=== PATIENT | female | born 1990 | race Caucasian/White ===

== ENCOUNTER 2016-03-08 18:21 | Inpatient (IN) | payer OTHER, MEDICAID ==
[~2016-03-08] VITALS: Ht 154.9 cm; Wt 57.6 kg
[2016-03-08] MEDS: LACTATED RINGER'S 1000 ML IV SCH ×2 (20:00→22:19)
[2016-03-08] MEDS ORDERED: MINERAL OIL 10 ML VIAL TOP PRN (21:00)
[2016-03-08] MEDS ORDERED: OXYTOCIN 30 UNITS 500ML PREMIX IV ONE (21:00)
[2016-03-08] MEDS ORDERED: LIDOCAINE HCL 1% 50 ML VIAL INFIL PRN (21:00)
[2016-03-08] MEDS ORDERED: PENICILLIN G POT 5,000,000 UNITS/NS 100 ML (Mini-Bag Plus) IV ONE ×2 (21:00)
[2016-03-08] MEDS ORDERED: LACTATED RINGER'S 1000 ML INJ 1,000 ML IV SCH (21:15)
[2016-03-08] MEDS ORDERED: LIDOCAINE HCL 1% 50 ML VIAL I-DERMAL PRN (21:15)
[2016-03-08] MEDS ORDERED: NS 1000 ML IV PRN (21:15)
[2016-03-08] MEDS ORDERED: CITRIC ACID-SODIUM CITRATE LIQ 30 ML UDC PO SCH (21:15)
[2016-03-08] MEDS ORDERED: NS 1000 ML XX PRN (21:15)
[2016-03-08] MEDS ORDERED: LACTATED RINGER'S 1000 ML BOLUS IV PRN (21:15)
[2016-03-08] MEDS ORDERED: NS 500 ML BOLUS IV PRN (21:15)
[2016-03-08] MEDS ORDERED: ONDANSETRON HCL 4 MG/2 ML VIAL IV PRN (21:15)
[2016-03-08 21:24] LABS: AUTOMATED NEUTROPHIL # 9.2 TH/MM3 (1.8-7.7); BASOPHIL # 0.1 TH/MM3 (0-0.2); BASOPHIL % 0.4 % (0.0-2.0); EOSINOPHIL # 0.1 TH/MM3 (0-0.4); EOSINOPHIL % 0.5 % (0.0-4.0); HEMATOCRIT 34.2 % (35.0-46.0); HEMO FLAGS DIFF FINAL; LYMPH % 26.6 % (9.0-44.0); LYMPHOCYTE # 3.7 TH/MM3 (1.0-4.8); MEAN CELL VOLUME 95.7 FL (80.0-100.0); MEAN CORPUSCULAR HEMOGLOBIN 32.9 PG (27.0-34.0); MEAN CORPUSCULAR HGB CONC 34.3 % (32.0-36.0); MONO % 6.4 % (0.0-8.0); NEUT % 66.1 % (16.0-70.0); PLATELET COUNT 299 TH/MM3 (150-450); RED BLOOD COUNT 3.57 MIL/MM3 (4.00-5.30); RED CELL DISTRIBUTION WIDTH 12.9 % (11.6-17.2); WHITE BLOOD COUNT 13.9 TH/MM3 (4.0-11.0)
--- NOTE | 2016-03-08 21:27 | HHI.HP ---
HPI Chief Complaint scheduled postdates labor induction Date Seen: Mar 08, 2016 Time Seen: 21:00 Travel History International Travel<30 Days: No Contact w/Intl Traveler<30Days: No Known Affected Area: No History of Present Illness HPI 25 yo with EDC 03/02/16 presents to L&D for scheduled postdates labor induction. has been complicated by history of opioid dependene, pt has been off subutex since 12/2015. Patient also presented late to PNC at 20 weeks. Has history of hepatitis C, s/p treatment, during has had non- detectable viral load. Was seeing Dr. Avilez for PNC. Today in office pt c/ o irregular contractions and pelvic pressure, mild /. No VB, LOF. Endorses good FM. FOB and mother are present at appointment and good support. Para: 0 : 3 Miscarriage: 0 : 2 (age 19 & 21) History Past Medical History Narrative Medical Hepatitis C, in remission history of IV drug abuse, h/o subutex; clean/off since 12/2015 LSIL Pap +HR HPV Obstetric History Obstetric History G1 & G2 = EAB age 19 &21 G3 = current Past Surgical History Narrative Surgical denies Family History Family History: Negative Social History Alcohol Use: No (history of, not currently) Tobacco Use: Yes Substance Abuse: No (not since 12/2015; was on subutex; history of heroin, street drugs since age 18) Review of Systems General / Constitutional: Weight Gain, No: Fever, Chills, Other Eyes: No: Diploplia, Blurred Vision, Visual changes, Pain, Photophobia HENT: No: Headaches, Vertigo, Lightheadedness Cardiovascular: No: Irregular Rhythm, Chest Pain or Discomfort, Palpitations, Tachycardia, Syncope, Varicosities, Edema, Cyanosis Respiratory: No: Cough, Short of Breath, Other Gastrointestinal: No: Nausea, Vomiting, Diarrhea Genitourinary: Pelvic Pain (pressure), No: Decreased Urinary Output, Oliguria Musculoskeletal: No: Limited ROM, Weakness, Cramping, Edema, Pain Skin: No Rash, No Itching, No Dryness, No Lumps, No Change in Pigmentation, No Change in Nails, No Alopecia, No Lesions Neurologic: No: Weakness, Dizziness, Syncope, Focal Abnormalities, Coordination Problem, Headache, Slurred Speech, Seizures Psychiatric: No: Depression, Suicidal Ideations, Homicidal Ideation Endocrine: No: Heat Intolerance, Cold Intolerance, Polydipsia, Polyuria, Other Physical Exam Narrative GENERAL: Well-nourished, well-developed patient. SKIN: Warm and dry. HEAD: Normocephalic and atraumatic. EYES: No scleral icterus. No injection or drainage. ENT: No nasal drainage noted. Mucous membranes pink. Airway patent. NECK: Supple, trachea midline. No JVD. CARDIOVASCULAR: Regular rate and rhythm without murmurs, gallops, or rubs. RESPIRATORY: Breath sounds equal bilaterally. No accessory muscle use. BREASTS: ABDOMEN/GI: Abdomen soft, non-tender, bowel sounds present, no rebound, no guarding Gravid to [41] weeks size Fundal Height: [41] GENITOURINARY: External Genitalia: intact and normal in appearance BUS glands: [wnl] Cervix: [posterior] Dilatation: [1 Effacement: [50] Station: [-3] Presentation: [vtx] Membranes: [intact] Uterine Contractions: [irregular] FHT's: +FHTs in office EXTREMITIES: No cyanosis or edema. BACK: Nontender without obvious deformity. No CVA tenderness. NEUROLOGICAL: Awake and alert. Motor and sensory grossly within normal limits. Five out of 5 muscle strength in all muscle groups. Normal speech. Data Data Vital Signs Reviewed: Yes Orders Code Status (03/08/16 21:04) Vital Signs (Adult) .Per protocol (03/08/16 21:04) Activity Oob Ad Madhavi (03/08/16 21:04) ^ Heart (03/08/16 21:04) ^ Amnioinfusion (03/08/16 21:04) Urinary Catheter Management .ONCE (03/08/16 21:04) Complete Blood Count With Diff (03/08/16 21:04) Hold Clot (03/08/16 21:04) Abo/Rh Blood Type (03/08/16 21:04) Urinalysis - C+S If Indicated (03/08/16 21:04) Resp Oxygen Non Rebreathe Mask (03/08/16 ) ^ Epidural / Intrathecal Infus (03/08/16 21:04) Diet Liquid (03/08/16 Dinner) Diet Npo (03/09/16 Breakfast) Activity Oob Ad Madhavi (03/08/16 21:04) ^ Labor Induction (03/08/16 21:04) ^ Vaginal Insert (03/08/16 21:04) ^ Vaginal Lavage (03/08/16 21:04) ^ Heart (03/08/16 21:04) Specimen To Be Collected PRN (03/08/16 21:04) Lactated Ringer's 1000 Ml Inj (Lr 1000 M (03/08/16 21:15) Lactated Ringer's 1000 Ml Inj (Lr 1000 M (03/08/16 21:15) Sodium Chlorid 0.9% 500 Ml Inj (Ns 500 M (03/08/16 21:15) Sodium Chlor 0.9% 1000 Ml Inj (Ns 1000 M (03/08/16 21:15) Lidocaine 1% Inj (50 Ml) (Xylocaine 1% I (03/08/16 21:15) Citric Acid-Sodium Citrate Liq (Bicitra (03/08/16 21:15) Ondansetron Inj (Zofran Inj) (03/08/16 21:15) Fentanyl Inj (Fentanyl Inj) (03/08/16 21:00) Fentanyl Inj (Fentanyl Inj) (03/08/16 21:00) Penicillin G Potassium Inj (Pfizerpen-G (03/08/16 21:00) Penicillin G Potassium Inj (Pfizerpen-G (03/09/16 01:00) Oxytocin 30 Units-500ml Premix (Pitocin (03/08/16 21:00) Lidocaine 1% Inj (50 Ml) (Xylocaine 1% I (03/08/16 21:00) Light Mineral Oil (Muri-Lube Oil) (03/08/16 21:00) Lactated Ringer's 1000 Ml Inj (Lr 1000 M (03/08/16 21:15) Sodium Chlor 0.9% 1000 Ml Inj (Ns 1000 M (03/08/16 21:15) Assessment/Plan Problem List: (1) Post term , 41 weeks (2) History of substance abuse (3) Hepatitis C Assessment and Plan 25 yo with EDC 03/02/16 presents at 40w6d for postdates IOL 1) IOL: start with cervidil overnight then evaluate in AM for additional methods as needed; pt aware of risk of failure of induction 2) h/o substance abuse: seen & treated in by Dr. Avilez with pt weaning off subutex, stopped completely 12/2015; history of street drug use, including IV drug use starting age 18; now with supportive mother & boyfriend, safe environment, motivated to stay clean; for f/u with Dr. Avilez PP 3) GBS +: for PCN ppx in labor 4) h/o Hepatitis C: s/p treatment; viral load not detectable during 5) LSIL/HPV Pap: for PP f/u 6) status: vertex, Cat I tracing Discharge Planning routine, 2-3d PP Alice Pedroza MD Mar 08, 2016 21:27
[2016-03-08] MEDS ORDERED: DINOPROSTONE 10 MG INSERT-LEAVE FOR 12 HOURS VAGINAL ONE (21:45)
[2016-03-08 22:03] LABS: BACTERIA, URINE FEW /hpf; BLOOD, URINE NEG (NEG); COMMENT (UR) CULTURE INDICATED; CULTURE IF INDICATED CULTURE INDICATED; GLUCOSE,URINE NEG (NEG); KETONE, URINE NEG (NEG); MUCUS URINE FEW /lpf (OCC); NITRITE,URINE NEG (NEG); SQUAMOUS EPITHELIAL CELL URINE <1 /hpf (0-5); URINE COLOR YELLOW (YELLW/STRAW)
[2016-03-09] VITALS (33 sets, daily range): BP systolic 91–129; BP diastolic 56–96; PULSE 44–90; RESP 16–18; TEMP 97.6–98.2
[2016-03-09 00:06] LABS: AMPHETAMINE, URINE NEG (NEG); BARBITURATES, URINE NEG (NEG); COCAINE, URINE NEG (NEG)
[2016-03-09] MEDS ORDERED: ZOLPIDEM TARTRATE 10 MG TAB PO PRN ×2 (00:45)
[2016-03-09] MEDS: PENICILLIN G POT 2,500,000 UNITS/NS 100 ML IV SCH ×8 (02:30→16:00)
[2016-03-09] MEDS ORDERED: PREN29TA PO (06:18)
[2016-03-09] MEDS ORDERED: fentaNYL 2MCG-BUPIV 0.125% INJ 100 ML ONE (08:12)
--- NOTE | 2016-03-09 08:24 | PD.LABORPN ---
Subjective Subjective feeling discomfort with contractions Objective Vital Signs Vital Signs Date Time Temp Pulse Resp B/P Pulse Ox O2 Delivery O2 Flow Rate FiO2 03/09/16 07:07 18 03/09/16 07:06 54 120/63 03/09/16 07:06 97.9 03/09/16 04:00 97.8 18 03/09/16 03:51 44 116/77 Objective Pelvic Exam: Cervix: [post, soft] Dilatation: [2] Effacement: [50] Station: [-2] Presentation: [vtx] Membranes: [AROM'd clear this check Uterine Contractions: [q4 min] FHT's: Category: [I] Assessment/Plan Problem List: (1) Post term , 41 weeks (2) History of substance abuse (3) Hepatitis C Assessment and Plan 25 yo at 41w0d admit for postdates IOL 1) IOL: s/p cervidil overnight, AROM'd this check, clear; pitocin augmentation as needed 2) GBS +: on PCN 3) HepC +: non-detectable viral load during 4) h/o substance abuse: clean since 12/2015 5) status: vtx, Cat I tracing Alice Pedroza MD Mar 09, 2016 08:24
[2016-03-09] MEDS ORDERED: OXYTOCIN 30 UNITS-500ML PREMIX 500 ML IV SCH (08:30)
[2016-03-09] MEDS ORDERED: ePHEDrine/NS 50 MG/5 ML SYR IV PRN (10:30)
[2016-03-09] MEDS ORDERED: NO SYSTEM NARCOTICS XX PRN (10:30)
[2016-03-09] MEDS ORDERED: DO NOT ADMINISTER ANTICOAGULANTS XX PRN (10:30)
[2016-03-09] MEDS ORDERED: fentaNYL 2MCG-BUPIV 0.125% INJ 100 ML EPIDURAL SCH (10:30)
[2016-03-09] MEDS ORDERED: MEASLES, MUMPS, RUBELLA VACCINE 0.5 ML VIAL SQ ONE (16:00)
[2016-03-09] MEDS ORDERED: LIDOCAINE HCL 1% 50 ML VIAL ONE (18:14)
[2016-03-09] MEDS ORDERED: DOCUSATE SODIUM 50 MG/SENNA 8.6 MG TAB PO PRN (18:30)
[2016-03-09] MEDS ORDERED: SODIUM CHLORIDE 0.9% FLUSH 5 ML FLUSH IV PRN (18:30)
[2016-03-09] MEDS ORDERED: ZOLPIDEM TARTRATE 5 MG TAB PO PRN (18:30)
--- NOTE | 2016-03-09 18:32 | PD.OB.DELI ---
Delivery Date: Mar 09, 2016 Anesthesia: Epidural Episiotomy: Midline Vaginal Delivery: Normal Presentation: Occiput anterior Nuchal Cord: x1 (tight, delivered through) : Male One Minute : 8 Five Minute : 9 Weight: 6#3oz Care: Spontaneous crying, Responded to stimulation Placenta: Spontaneous delivery, Intact, 3 vessel cord Laceration: Episiotomy, 2 deg Repair: Chromic running Additional Information EBL 200 mL Alice Pedroza MD Mar 09, 2016 18:32
[2016-03-09] MEDS ORDERED: SENN1TAB PO (18:34)
[2016-03-09] MEDS ORDERED: IBUP-232 PO (18:34)
--- NOTE | 2016-03-09 18:34 | HHI.DCPOC ---
Discharge Care Plan Diagnosis: (1) (spontaneous vaginal delivery) Your Health Problems Are: Vaginal delivery Report Symptoms to Your Doctor -Temperate above 100.5 degrees -Redness, of incision or excessive or foul smelling drainage -Unusual pain or calf pain -Increased vaginal bleeding -Painful or difficulty urinating -Feelings of extreme sadness or anxiety after 2 weeks Goals to Promote Your Health * To prevent worsening of your condition and complications * To maintain your health at the optimal level Directions to Meet Your Goals Take your medications as prescribed Follow your dietary instruction Follow activity as directed Ensure plenty of rest for recovery Drink fluids for hydration Keep your appointments as scheduled Take your immunizations and boosters as scheduled If your symptoms worsen call your PCP, if no PCP go to Urgent Care Center or Emergency Room Smoking is Dangerous to Your Health. Avoid second hand smoke Call the 24-hour crisis hotline for domestic abuse at Alice Pedroza MD Mar 09, 2016 18:34
[2016-03-09] MEDS ORDERED: BENZOCAINE 20% TOPICAL SPRAY 60 ML CAN TOPICAL PRN (19:00)
[2016-03-09] MEDS ORDERED: WITCH HAZEL 50%/GLYCERIN 12.5% 40 PAD JAR TOPICAL PRN (19:00)
[2016-03-09] MEDS ORDERED: ONDANSETRON ODT 4 MG TAB PO PRN (19:00)
[2016-03-09] MEDS ORDERED: ALUMINUM/MAGNESIUM/SIMETH 30 ML CUP PO PRN (19:00)
[2016-03-09] MEDS ORDERED: OXYTOCIN 30 UNITS-500ML PREMIX 500 ML ONE (19:04)
[2016-03-09] MEDS: IBUPROFEN 600 MG TAB PO SCH (20:09)
[2016-03-09] MEDS ORDERED: SODIUM CHLORIDE 0.9% FLUSH 5 ML FLUSH IV SCH (21:00)
[2016-03-09] MEDS: DOCUSATE SODIUM 50 MG/SENNA 8.6 MG TAB PO SCH (21:12)
[2016-03-09] MEDS ORDERED: DIPHTH/TETANUS/ACEL PERTUSSIS (BOOSTER) 0.5 ML VIAL/PFS IM ONE (22:00)
[2016-03-10] MEDS: IBUPROFEN 600 MG TAB PO SCH ×4 (02:27→17:41)
[2016-03-10] MEDS: ACETAMINOPHEN 325 MG TAB PO PRN ×4 (02:32→17:41)
[2016-03-10 08:30] VITALS: BP 118/75; PULSE 65; RESP 16; TEMP 98.4
[2016-03-10] MEDS: DOCUSATE SODIUM 50 MG/SENNA 8.6 MG TAB PO SCH (08:47)
[2016-03-10] MEDS ORDERED: INFLUENZA VIRUS VACCINE (QUADRIVALENT) 0.5 ML SYR IM ONE (09:00)
--- NOTE | 2016-03-10 10:56 | HHI.OB ---
Subjective Post Day: 1 Remarks PPD#1, S/P , GBS+; stable Objective Vitals/I&O Vital Signs Date Time Temp Pulse Resp B/P Pulse Ox O2 Delivery O2 Flow Rate FiO2 03/10/16 08:30 98.4 03/10/16 08:30 65 16 118/75 03/10/16 03:27 16 03/10/16 03:27 16 03/09/16 21:00 68 16 115/62 03/09/16 21:00 98.2 03/09/16 20:15 18 03/09/16 20:01 47 117/78 03/09/16 17:31 54 120/77 03/09/16 17:15 98.0 18 03/09/16 17:02 60 111/71 03/09/16 16:39 18 03/09/16 16:31 58 102/61 03/09/16 15:01 45 115/76 03/09/16 14:31 54 129/96 03/09/16 14:22 53 113/75 03/09/16 13:02 54 91/58 03/09/16 13:00 64 97/64 03/09/16 12:38 44 105/67 03/09/16 12:31 70 100/71 03/09/16 12:15 102/62 03/09/16 12:15 46 03/09/16 12:00 98.1 18 03/09/16 12:00 45 97/56 03/09/16 11:45 52 94/76 Objective Remarks GENERAL: Well-nourished, well-developed patient. CARDIOVASCULAR: Regular rate and rhythm without murmurs, gallops, or rubs. RESPIRATORY: Breath sounds equal bilaterally. No accessory muscle use. ABDOMEN/GI: Abdomen soft, non-tender. Fundus: Firm, non-tender at umbilicus. GENITOURINARY: Light to moderate bleeding. EXTREMITIES: No cyanosis or edema, non-tender, without signs of DVT. Medications and IVs Current Medications Medications (Trade) Dose Ordered Sig/Camille Route Start Time Stop Time Status Last Admin (NS Flush) 2 ml BID IV 03/09/16 21:00 03/09/16 21:00 (NS Flush) 2 ml UNSCH PRN IV 03/09/16 18:30 (Tylenol) 650 mg Q4H PRN PO 03/09/16 19:00 03/10/16 08:47 (Motrin) 600 mg Q6H PO 03/09/16 19:00 03/10/16 08:47 (Americaine 20% Top Spr) 1 spray Q4H PRN TOPICAL 03/09/16 19:00 03/09/16 20:51 (Tucks Pads) 1 applic QID PRN TOPICAL 03/09/16 19:00 03/09/16 20:51 (Ambien) 5 mg HS PRN PO 03/09/16 18:30 (Mag-Al Plus Susp Liq) 15 ml Q8H PRN PO 03/09/16 19:00 (Zofran Odt) 4 mg Q6H PRN PO 03/09/16 19:00 (Halley-Colace) 2 tab Q12H PO 03/09/16 21:00 03/10/16 08:47 Assessment/Plan Problem List: (1) Post term , 41 weeks (2) History of substance abuse (3) Hepatitis C Assessment and Plan 25 yo , PPD#1 Stable, GBS + Plan discharge for thur. am Discharge Planning routine, 2-3d PP Antoine Zhang MD Mar 10, 2016 10:56
--- NOTE | 2016-03-10 11:20 | PD.CIRC ---
Circumcision Procedure Note Procedure: Circumcision Pre-procedure diagnosis: circumcision Post-procedure diagnosis: circumcision Informed Consent: The risks, benefits, indications, potential complications, and alternatives were explained to the patient/family and informed consent obtained. The baby was brought to the procedure room where a time-out was done to ID the patient and the procedure. Performing Physician: Antoine Zhang Anesthesia used: 1% lidocaine injected Type of block: dorsal penile block Device used: Mogen Description: The baby was prepped and draped in a sterile fashion. The procedure followed standard technique. The baby tolerated the procedure well without complication. Findings: Normal male genitalia Estimated blood loss: none Specimen: No Antoine Zhang MD Mar 10, 2016 11:20
[2016-03-10 21:00] VITALS: BP 110/66; PULSE 51; RESP 18; TEMP 97.9
[2016-03-11] MEDS: ACETAMINOPHEN 325 MG TAB PO PRN ×2 (01:01→08:14)
[2016-03-11] MEDS: DOCUSATE SODIUM 50 MG/SENNA 8.6 MG TAB PO SCH (01:02)
[2016-03-11] MEDS: IBUPROFEN 600 MG TAB PO SCH ×2 (01:02→08:14)
[2016-03-11 02:00] VITALS: RESP 18
--- NOTE | 2016-03-11 08:05 | HHI.OB ---
Subjective Post Day: 2 Remarks no complaints, ready for discharge Objective Vitals/I&O Vital Signs Date Time Temp Pulse Resp B/P Pulse Ox O2 Delivery O2 Flow Rate FiO2 03/11/16 02:00 18 03/11/16 02:00 18 03/10/16 21:00 97.9 51 18 110/66 03/10/16 08:30 98.4 03/10/16 08:30 65 16 118/75 Objective Remarks GENERAL: Well-nourished, well-developed patient. CARDIOVASCULAR: Regular rate and rhythm without murmurs, gallops, or rubs. RESPIRATORY: Breath sounds equal bilaterally. No accessory muscle use. ABDOMEN/GI: Abdomen soft, non-tender. Fundus: Firm, non-tender at umbilicus. GENITOURINARY: Light to moderate bleeding. EXTREMITIES: No cyanosis or edema, non-tender, without signs of DVT. Medications and IVs Current Medications Medications (Trade) Dose Ordered Sig/Camille Route Start Time Stop Time Status Last Admin (NS Flush) 2 ml BID IV 03/09/16 21:00 03/09/16 21:00 (NS Flush) 2 ml UNSCH PRN IV 03/09/16 18:30 (Tylenol) 650 mg Q4H PRN PO 03/09/16 19:00 03/11/16 01:01 (Motrin) 600 mg Q6H PO 03/09/16 19:00 03/11/16 01:02 (Americaine 20% Top Spr) 1 spray Q4H PRN TOPICAL 03/09/16 19:00 03/09/16 20:51 (Tucks Pads) 1 applic QID PRN TOPICAL 03/09/16 19:00 03/09/16 20:51 (Ambien) 5 mg HS PRN PO 03/09/16 18:30 (Mag-Al Plus Susp Liq) 15 ml Q8H PRN PO 03/09/16 19:00 (Zofran Odt) 4 mg Q6H PRN PO 03/09/16 19:00 (Halley-Colace) 2 tab Q12H PO 03/09/16 21:00 03/11/16 01:02 Assessment/Plan Problem List: (1) Post term , 41 weeks (2) History of substance abuse (3) Hepatitis C Assessment and Plan 25 yo , PPD#2 Stable, GBS + Plan discharge for thur. am Discharge Planning routine Attending Attestation pt seen by Ana Stinson MD Mar 11, 2016 08:05
[2016-03-12 14:08] LABS: BATH SALTS (MDPV) UR NEG (NEG); ECSTASY (MDMA) UR NEG (NEG); HEROIN (6-ACETYLMORPHINE) UR NEG (NEG); K2 SPICE UR NEG (NEG); OBMETHADONE UR NEG (NEG); OXYCODONE (PERCODAN) NEG (NEG); PHENCYCLIDINE URINE NEG (NEG)
== END 2016-03-11 11:03 | disposition home or self-care (01) | DRG 774 ==
LOC: H2EB 18:21 → H1EA 03-09 20:37
PROVIDERS: ADMIT Obstetrics & Gynecology; ATTEND Obstetrics & Gynecology
PROC: 0W8NXZZ Division of Female Perineum, External Approach (ICD-10-PCS; principal; 2016-03-08)
PROC: 10E0XZZ Delivery of Products of Conception, External Approach (ICD-10-PCS; 2016-03-08)
PROC: 0KQM0ZZ Repair Perineum Muscle, Open Approach (ICD-10-PCS; 2016-03-08)
DX: O70.1 Second degree perineal laceration during delivery (principal); O98.42 Viral hepatitis complicating childbirth; Z37.0 Single live birth; O69.1XX0 Labor and delivery complicated by cord around neck, with compression, not applicable or unspecified; O99.824 Streptococcus B carrier state complicating childbirth; O48.0 Post-term pregnancy; Z3A.41 41 weeks gestation of pregnancy; B19.20 Unspecified viral hepatitis C without hepatic coma; O99.334 Smoking (tobacco) complicating childbirth; F17.200 Nicotine dependence, unspecified, uncomplicated
CPT/HCPCS: 80307; 81001; 85025; 86900; 86901; 87086; 90686; 90715; G0481; J2540; J2590; J3010; J7120; Q2038